=== PATIENT | female | born 1945 | race Caucasian/White ===

== ENCOUNTER 2017-06-11 15:00 | Inpatient (IN) | payer MEDICARE, OTHER ==
--- NOTE | 2017-05-22 08:05 | HP ---
HISTORY AND PHYSICAL: DATE OF SURGERY/ADMISSION: 06/11/17 DATE OF OFFICE VISIT: 05/17/17 ATTENDING SURGEON: Dr. Mel Rodriguez * (DICTATED BY LAUREN LEAL) PROCEDURE: Right total knee arthroplasty. CHIEF COMPLAINT: Right knee pain. HISTORY OF PRESENT ILLNESS: Ms. Ervin is a very pleasant 71-year-old female, who presents today for history and physical examination prior to undergoing a right total knee arthroplasty. In brief, the patient states that her pain has been worsening in time. She has failed conservative treatments such as intra- articular injections, physical therapy, brace wear, and pain medications. She has elected to undergo a right total knee arthroplasty with Dr. Mel Rodriguez on 06/11/17. PAST MEDICAL HISTORY: 1. Gastric ulcer with no history of bleeding for over 10 years. 2. Generalized osteoarthritis. 3. GERD. 4. Hypertension. 5. Thyroid cancer, status post resection. 6. Asthma. PAST SURGICAL HISTORY: 1. Sinus surgeries in 1995. 2. Melanoma excision from abdomen in 2000. 3. Thyroid cancer excision in 2007. 4. Cholecystectomy in 1991. FAMILY HISTORY: Positive for heart disease and cancer. SOCIAL HISTORY: The patient lives with her . She denies tobacco use or recreational drug use. Approximately 1 to 2 glasses of wine a day. Independent ambulator. MEDICATIONS: 1. Levothyroxine 112 mcg 1 tablet by mouth daily. 2. Amlodipine 5 mg 1 tablet by mouth daily. 3. Advair Diskus once daily. 4. Pepcid 20 mg 1 tablet by mouth twice daily. 5. Sertraline 25 mg 1 tablet by mouth daily. 6. Prevalite 4 g mix and drink 1 packet once a day. 7. EnteraGam 5 g 1 packet twice daily. 8. [place] 5/325 one to two tablets by mouth every 8 hours as needed for pain. 9. Benadryl. ALLERGIES: 1. LEVAQUIN, causes hives. 2. AMOXICILLIN, causes hives. REVIEW OF SYSTEMS: General: Negative for fevers, chills, or night sweats. No difficulty with anesthesia. HEENT: Negative for headaches, lightheadedness, or syncopal episodes. Integument: Negative for abrasions, lesions, open wounds , or sores. No difficulty with wound healing. Cardiothoracic: Negative for chest pain, palpitations, or edema. Positive for hypertension. Pulmonary: Negative for shortness of breath, chronic cough, or COPD. Positive for asthma. GI: Negative for nausea, vomiting, constipation, or diarrhea. Positive for GERD. Positive for gastric ulcers in the past. : Negative for nocturia, urinary frequency, or urgency. No history of UTIs or kidney problems. Musculoskeletal: Positive for bilateral knee pain. Positive for intermittent lower back pain. Neuro: Negative for paresthesias, numbness. No history of seizure, stroke, or epilepsy. Endocrine: Negative for diabetes. Positive for thyroid cancer, status post resection. Hematologic: Negative for easy bruising , anemia, or excessive bleeding. No history of DVTs or PEs. Infectious Disease : Negative for MRSA, hepatitis C, or HIV. PHYSICAL EXAMINATION GENERAL: Well appearing, in no acute distress. Alert and oriented x3. VITAL SIGNS: Height 63 inches, weight 160 pounds, pulse of 103, blood pressure 144/68, pain level 5, BMI 28.3. HEENT: Normocephalic, atraumatic. Pupils, EOMI. PULMONARY: Lungs are clear to auscultation bilaterally. No crackles, rhonchi, or wheezes. CARDIAC: Heart is regular rate and rhythm. No murmurs, gallops, or rubs. NEUROLOGIC: Alert and oriented x3. Cranial nerves are grossly intact. Sensation is intact to light touch bilateral lower extremities. MUSCULOSKELETAL: Approximately 10 degrees valgus deformity. No varus valgus instability. Range of motion is 5 to 120 degrees. Negative Homans sign bilaterally. SKIN: Intact. No open wounds or abrasions. GAIT: Antalgic gait, favoring bilateral knees. Valgus alignment of the right knee. DIAGNOSTIC STUDIES/LAB DATA: X-rays of the knee showed tricompartmental arthritis with some osteophyte formation and joint space narrowing with bone-on- bone unilateral compartment. ASSESSMENT: The patient is a very pleasant 71-year-old female, who has elected to undergo a right total knee replacement by Dr. Rodriguez on 06/11/17 and her pain medications were sent to the patient's pharmacy preoperatively. She will undergo PATs. She had no other questions or concerns, will call us if any do arise. LAUREN LEAL [id number]/[facility] #: [id number] [facility]
--- NOTE | 2017-07-09 20:15 | HP ---
HISTORY AND PHYSICAL: DATE OF ADMISSION/SURGERY: 07/18/17 DATE OF OFFICE VISIT: 07/08/17 SURGEON: Mel Rodriguez MD * (DICTATED BY LAUREN JAVED) PROCEDURE: Right total knee arthroplasty. CHIEF COMPLAINT: Right knee pain. HISTORY OF PRESENT ILLNESS: Ms. Ervin is a 71-year-old female with complaints of right knee pain secondary to severe osteoarthritis. She has failed conservative management and has elected to proceed with a right total knee arthroplasty, which is scheduled for 07/18/[address] Rodriguez. PAST MEDICAL HISTORY: Hypertension, thyroid cancer, gastric ulcers, GERD, asthma, melanoma, history of intestinal MRSA, and chronic sinusitis. PAST SURGICAL HISTORY: Sinus surgeries, melanoma removal, thyroidectomy, and cholecystectomy. CURRENT MEDICATIONS: 1. Levoxyl 137 mcg daily. 2. Amlodipine 10 mg daily. 3. Advair Diskus. 4. Pepcid 40 mg daily. 5. Sertraline 50 mg daily. ALLERGIES: To LEVAQUIN, AMOXICILLIN, and NORCO causing itching. FAMILY HISTORY: Heart disease and cancer. SOCIAL HISTORY: This 71-year-old female lives with her . She does not smoke or use drugs. She uses occasional alcohol. REVIEW OF SYSTEMS: A complete 14-point review of systems was reviewed with the patient. Positive for history of thyroid cancer, intestinal MRSA infection 2 years ago, GERD, and an asthma attack following general anesthesia. She denies history of DVT, PE, hepatitis C, or HIV. PHYSICAL EXAMINATION GENERAL: She is well developed, well nourished, in no acute distress. VITAL SIGNS: She stands 5 feet 3 inches tall, weighs 160 pounds. Her blood pressure is 124/94, her heart rate is 98. HEENT: Normocephalic, atraumatic. NECK: Supple. No palpable lymph nodes. PULMONARY: Lungs are clear to auscultation bilaterally. CARDIO: Regular rate and rhythm. Strong S1, S2. ABDOMEN: Soft, nontender, nondistended. NEUROLOGICAL: She is alert and oriented x3. Cranial nerves II through XII are intact. MUSCULOSKELETAL: Right lower extremity, the skin is intact. There are no open wounds or abrasions. 10 to 120 degrees of flexion with 10 degrees of valgus deformity. She is distally neurovascularly intact. ASSESSMENT AND PLAN: Ms. Ervin is a 71-year-old female with complaints of right knee pain secondary to advanced osteoarthritis. She has failed conservative management and has elected to proceed with a right total knee arthroplasty, which is scheduled for 07/18/[address] Rodriguez discussed the risks and benefits of the surgery at today's visit and all of her questions were answered. Coumadin, Percocet, and Colace were sent to her pharmacy for postoperative pain control and DVT prophylaxis. Postoperatively, she will be placed on vanco for 24 hours because of her history of methicillin- resistant Staphylococcus aureus infection and she will follow with Dr. Rodriguez 2 weeks after the surgery. LAUREN JAVED [id number]/[facility] #: [id number] MTDD
[2017-07-22] MEDS ORDERED: Buffered Lidocaine 0.9% SYRIN* 5 ML/SYR SYRINGE INTRADERM ONE (11:28)
[2017-07-23] MEDS ORDERED: Dexamethasone IV* 4 MG/ML 1 ML (4 MG) IV SLOW PU ONE (06:00)
[2017-07-23] MEDS ORDERED: Dexamethasone IV* 4 MG/ML 1 ML (4 MG) ONE (13:04)
[2017-07-23] MEDS ORDERED: Clindamycin 900 MG IVPREMIX(* 900 MG/50 ML SDV IV ONE (13:04)
[2017-07-23] MEDS ORDERED: Buffered Lidocaine 0.9% SYRIN* 5 ML/SYR SYRINGE ONE (13:04)
[2017-07-23] MEDS ORDERED: Levalbuterol 0.63MG/3ML NEB* UNIT OF USE INH ONE (13:09)
[2017-07-23] MEDS ORDERED: Levalbuterol 1.25MG/0.5ML NEB ONE (13:16)
[2017-07-23] MEDS ORDERED: Ondansetron INJ* 2 MG/ML VIAL ONE (13:44)
[2017-07-23] MEDS ORDERED: Bupivacaine 0.5% SDV PF* 30 ML VIAL ONE (13:44)
[2017-07-23] MEDS ORDERED: Morphine PF AMP (0.5MG/ML)* 5 MG/10 ML AMP ONE (13:44)
[2017-07-23] MEDS ORDERED: KETAMINE HCL* 50 MG/ML 10 ML VIAL ONE (13:44)
[2017-07-23] MEDS ORDERED: Propofol* 10 MG/ML 20 ML BTL IV PUSH ONE (13:44)
[2017-07-23] MEDS ORDERED: Midazolam* 1 MG/ML 10 ML VIAL (10 MG) ONE (13:44)
[2017-07-23] MEDS ORDERED: Lidocaine 2% PF * 5 ML VIAL ONE (14:49)
[2017-07-23] MEDS ORDERED: fentaNYL* 50 MCG/ML 2 ML VIAL (100 MCG VIAL) ONE (14:49)
[2017-07-23] MEDS ORDERED: Acetaminophen TAB* 325 MG PO PRN (14:56)
[2017-07-23] MEDS ORDERED: Magnesium Hydroxide LIQ* 30 ML UDC PO PRN (14:56)
[2017-07-23] MEDS ORDERED: Bisacodyl SUPP* 10 MG SUPP PR PRN (14:56)
[2017-07-23] MEDS ORDERED: Polyethylene Glycol 3350* 17 GM PACKET PO PRN (14:56)
[2017-07-23] MEDS ORDERED: Albuterol HFA INHALER* 8 gm MDI INH PRN (15:00)
[2017-07-23] MEDS ORDERED: Ondansetron INJ* 2 MG/ML VIAL IV PRN (15:12)
[2017-07-23] MEDS ORDERED: Nalbuphine* 20 MG/ML 1 ML VIAL IV PRN ×2 (15:12)
[2017-07-23] MEDS ORDERED: Naloxone* 0.4 MG/ML 1 ML VIAL IV PRN (15:12)
[2017-07-23] MEDS ORDERED: oxyCODONE/Acetamin 5/325 MG* TAB PO PRN ×2 (15:12)
[2017-07-23] MEDS ORDERED: DiMENhydriNATE IV* 50 MG/ML VIAL IV PUSH PRN (15:12)
[2017-07-23] MEDS ORDERED: Ropivacaine* 300 MG in NS 0.9% 250 ML* 240 ML EPIDURAL SCH (16:00)
[2017-07-23] MEDS ORDERED: Scopolamine 1.5 mg* PATCH TRANSDERM SCH (16:00)
--- NOTE | 2017-07-23 17:43 | RAD ---
Indication: Right knee pain. 2 views of the right knee demonstrates right knee replacement in satisfactory position. Drainage catheter is in place. IMPRESSION: Right knee replacement in satisfactory position.
[2017-07-23] MEDS ORDERED: Warfarin TAB(*) 6 MG PO ONE (18:00)
[2017-07-23] MEDS: Sertraline* 50 MG TAB PO SCH (18:32)
[2017-07-23] MEDS: Levothyroxine TAB* 137 MCG TAB PO SCH (20:45)
[2017-07-23] MEDS: Vancomycin(*) 1,000 MG in NS 0.9% 250 ML* 250 ML IVPB SCH (20:49)
[2017-07-23] MEDS: Docusate CAP* 100 MG PO SCH (20:49)
[2017-07-24] MEDS ORDERED: Al Hydrox/Mg Hydrox/Simet LIQ* 30 ML UDC PO PRN (00:15)
--- NOTE | 2017-07-24 04:49 | OP ---
DATE OF OPERATION: 07/23/17 - ROOM #333 DATE OF : 47 ATTENDING SURGEON: Mel Rodriguez MD COREMAKING SUPERVISOR: LAUREN Parsons. Ms. Lazo did help throughout the procedure with preparation of the leg, wound retraction, manipulation of the knee, and wound closure. ANESTHESIOLOGIST: Dr. Cochran. ANESTHESIA TYPE: Spinal. PRE-OP DIAGNOSIS: Severe end-stage degenerative osteoarthritis of the right knee joint with valgus deformity. POST-OP DIAGNOSIS: Severe end-stage degenerative osteoarthritis of the right knee joint with valgus deformity. OPERATIVE PROCEDURE: Right total knee arthroplasty. TOURNIQUET TIME: 42 minutes. COMPLICATIONS: None. SPECIMEN: Right knee bone and cartilage sent to Pathology. ESTIMATED BLOOD LOSS: 250 cc. HARDWARE USED: This is [employer]rol[employer] Nephew cemented total knee arthroplasty hardware. Two packages of Simplex bone cement. For the femur, a size 4 narrow right Oxinium femoral component legion. For the tibia, a size 3 Erlinda II right tibial baseplate. For the insert, an 11 mm posterior stabilized articular insert size 3-4 and for the patella, 32 mm 3-peg all poly patella. BRIEF HISTORY/INDICATIONS: Ms. Ervin is a 71-year-old female with years of increasingly severe right knee pain. She failed conservative treatment with anti-inflammatories, pain medication, intraarticular injections, and physical therapy. Radiograph showed [id number] arthritis. She elected to undergo right total knee arthroplasty due to continued pain and decreased quality of life. Informed consent was obtained from the patient. She understood the risks of the procedure included, but were not limited to bleeding, infection, damage to nearby structures, continued pain, need for further surgery, intraoperative fracture, nerve palsy, hardware failure or loosening, knee stiffness, loss of motion, stroke, heart attack, blood clot, and . She wished to proceed. INTRAOPERATIVE FINDINGS: Intraoperatively, the patient was noted to have 12- degree valgus deformity preoperatively. This was corrected to anatomic valgus of 5 degrees at the end of the case. She had tricompartmental full thickness loss of cartilage as well as lateral femoral condylar hypoplasia. DESCRIPTION OF PROCEDURE: Ms. Ervin was identified in the preanesthesia unit. Her right lower extremity was marked as the correct operative side. Informed consent was signed and placed in the chart. The patient was taken to the operating room and placed under spinal anesthesia. A Ma catheter was placed. Tourniquet was placed on the right thigh. Right lower extremity was prepped and draped in the usual sterile fashion. Preop time-out was made to correctly identify the patient, side, and site. Appropriate perioperative antibiotics were given within 1 hour of incision. Tourniquet was inflated and total tourniquet time for this procedure was 42 minutes. A 12-cm midline incision was made with a 10-blade and carried down to the extensor mechanism. A new 10-blade was used to make a standard medial parapatellar arthrotomy. The patella was subluxed laterally. Electrocautery was used to subperiosteally elevate soft tissue off the superomedial tibia to the mid sagittal plane. The knee was flexed up. Drill was used to enter the distal femur. Intramedullary distal femoral cutting guide was pinned on the distal femur. Oscillating saw was used to make the distal femoral cut. Lateral femoral condylar hypoplasia was noted. This was accounted for. Next, the external rotation guide was pinned on the distal femur and the distal femur was sized to a size 4. A size 4 multi-cutting jig was pinned on the distal femur and the oscillating saw was used to make the appropriate 4 chamfer cuts. Next, the PCL was completely released. The tibia was subluxed anteriorly. Extramedullary tibial cutting guide was pinned on the proximal tibia. Oscillating saw was used to make the appropriate proximal tibial cut. This cut was made perpendicular to the mechanical axis of the tibia. The bone was carefully removed. The knee was brought out into full extension. A spacer block had good fit with full extension. Medial and lateral ligaments were well balanced. The flexion and extension gaps were well balanced. The knee was flexed up. Lamina skull splitter was placed both medially and laterally. Any remaining meniscus was carefully removed using electrocautery. A curved osteotome was used to remove any posterior osteophytes. Tibial tray and drop bruce were placed to confirm the tibial cut. Tibial cut was confirmed to be satisfactory. Next, the size 4 narrow right femoral trial was impacted on to the distal femur. This trial had excellent fit. The box for the posterior stabilized implant was prepared using a reamer and box cut osteotome. A size 3 tibial tray trial with an 11 mm insert trial was placed and the knee was taken through a range of motion. The knee had full extension to 130 degrees of flexion with good patellofemoral tracking. The patella was everted. A 9 mm subpatellar bone and cartilage was carefully removed. The patella was sized to a size 32. Three peg holes were drilled through the size 32 guide. A 32 trial patella was placed and the knee was taken through a range of motion. The patellofemoral tracking was satisfactory. All trials were carefully removed. The tibia was subluxed anteriorly and sized to a size 3. Proximal tibia was prepared using a size 3 keel punch. All bony cut surfaces were copiously irrigated with sterile saline and dried. The final implants were cemented into place starting with the tibia, followed by the femur and last the patella. An 11-mm insert trial was placed and the knee was brought out into full extension. The tourniquet was turned down at 42 minutes. Cement was allowed to fully cure. The knee was copiously irrigated with sterile saline. Electrocautery was used to obtain meticulous hemostasis. Once the cement had fully cured, the insert trial was carefully removed. Any excess cement was removed from around the capsule and hardware. An 11-mm posterior stabilized articular insert size 3-4 was chosen as the final insert. This was locked into position on the tibial tray. Stability of the insert was checked and rechecked and noted to be stable. The knee was copiously irrigated with sterile saline. The extensor mechanism was closed using interrupted #1 Vicryls over a medium Hemovac drain. The rest of the incision was closed in a layered fashion using 0 and 2-0 Vicryls. Skin was closed using running 3-0 nylon suture. Sterile Xeroform, 4x4s, and Webril were used to cover the incision. Lazarus wrap and cold pack were placed over this. The patient's anesthesia was reversed without difficulty. She was taken to the PACU in stable condition. Intended weightbearing will be weightbearing as tolerated. Intended DVT prophylaxis will be Coumadin with a Lovenox bridge. [id number]/[facility] #: [id number] [facility]
[2017-07-24 05:30] LABS: Hematocrit 31 % (35-47); Hemoglobin 10.3 g/dl (12.0-16.0)
[2017-07-24 05:41] LABS: BUN/Creatinine Ratio 20.2 (8-20); EGFR African American 71.3 (>60); EGFR Non-African American 55.5 (>60); Potassium 3.3 mmol/L (3.5-5.0)
[2017-07-24] MEDS ORDERED: oxyCODONE/Acetamin 5/325 MG* TAB PO PRN (06:00)
[2017-07-24] MEDS ORDERED: diPHENhydraMINE IV* 50 MG/ML 1 ml VIAL (BENADRYL) IV PRN (06:00)
[2017-07-24] MEDS ORDERED: Morphine INJ* 2 MG/ML 1 ML SYRINGE (TWO MG - NEW SYRINGE VERSION) IV PRN ×2 (06:00→14:13)
[2017-07-24] MEDS ORDERED: Ondansetron INJ* 2 MG/ML VIAL IV PRN (06:00)
[2017-07-24] MEDS ORDERED: Ondansetron TAB* 4 MG PO PRN (06:00)
[2017-07-24] MEDS: oxyCODONE/Acetamin 5/325 MG* TAB PO PRN ×4 (06:10→19:46)
[2017-07-24] MEDS ORDERED: Famotidine TAB* 20 MG PO PRN (06:55)
[2017-07-24] MEDS: oxyCODONE TAB* 5 MG TAB PO PRN ×3 (08:02→17:05)
--- NOTE | 2017-07-24 08:08 | PN ---
Progress Note - Progress Note Date of Service: 07/24/17 SOAP: Subjective: []Patient seen OOB in chair. She denied pain this morning which became more prevalent throughout the afternoon. She requests pain medication prior to physical therapy. Denies chest pain, shortness of breath, dizziness and nausea. Objective: [] Vital Signs Temp 98.5 F 07/24/17 07:46 Pulse 97 07/24/17 07:46 Resp 18 07/24/17 08:02 BP 147/77 07/24/17 07:46 Pulse Ox 99 07/24/17 07:46 Intake & Output 07/23/17 07/24/17 07/24/17 18:59 06:59 18:59 Intake Total 1400 2090 Output Total 1200 Balance 1400 890 Weight 166 lb Intake: IV Fluids 1400 980 LR 1400 980 IVPB 270 ABX - VANCOMYCIN 270 Oral 840 Output: Ma 1200 Laboratory Last Values Hgb 10.3 g/dl (12.0-16.0) L 07/24/17 04:46 Hct 31 % (35-47) L 07/24/17 04:46 INR (Anticoag Therapy) 0.98 (0.77-1.02) 07/24/17 04:45 Sodium 133 mmol/L (133-145) 07/24/17 04:46 Potassium 3.3 mmol/L (3.5-5.0) L 07/24/17 04:46 Chloride 98 mmol/L (101-111) L 07/24/17 04:46 Carbon Dioxide 26 mmol/L (22-32) 07/24/17 04:46 Anion Gap 9 mmol/L (2-11) 07/24/17 04:46 BUN 20 mg/dL (6-24) 07/24/17 04:46 Creatinine 0.99 mg/dL (0.51-0.95) H 07/24/17 04:46 Est GFR ( Amer) 71.3 (>60) 07/24/17 04:46 Est GFR (Non-Af Amer) 55.5 (>60) 07/24/17 04:46 BUN/Creatinine Ratio 20.2 (8-20) H 07/24/17 04:46 Glucose 138 mg/dL (70-100) H 07/24/17 04:46 Calcium 8.0 mg/dL (8.6-10.3) L 07/24/17 04:46 Blood Type A Positive 07/23/17 13:24 Antibody Screen Negative 07/23/17 13:24 General: Well appearing, no acute distress RLE: Dressing CDI without surrounding erythema. Drain pulled by Dr. Rodriguez this morning without complication Bl/LE: Calves supple and nontender without erythema, edema or palpable cords. Negative jo's sign. 2+ DP/PT pulses. Sensation intact distally. DF/PF intact. Assessment: []POD 1 s/p right total knee arthroplasty Plan: []WBAT PT/OT lovenox, coumadin 8 mg tonight Morphine required prior to PT today Plan for home tomorrow
[2017-07-24] MEDS: Potassium Chlor TAB* 20 MEQ TAB.ER PO SCH ×2 (08:39→08:46)
[2017-07-24] MEDS: amLODIPine TAB* 5 MG PO SCH (08:39)
[2017-07-24] MEDS: Docusate CAP* 100 MG PO SCH ×2 (08:39→19:46)
[2017-07-24] MEDS: Famotidine TAB* 20 MG PO SCH (08:39)
[2017-07-24] MEDS: Potassium Chloride LIQUID* 20 MEQ PACKET PO SCH ×2 (08:54→19:48)
[2017-07-24] MEDS: Vancomycin(*) 1,000 MG in NS 0.9% 250 ML* 250 ML IVPB SCH (08:54)
[2017-07-24] MEDS ORDERED: Atorvastatin* 10 MG TAB PO SCH (09:00)
[2017-07-24] MEDS ORDERED: Mometasone/Formoter 200/5 MDI INH SCH (09:00)
[2017-07-24] MEDS ORDERED: CMC:Rosuvastatin (NF) 5 MG TAB PO SCH (09:22)
[2017-07-24] MEDS: CMC:Rosuvastatin (NF) 5 MG TAB PO SCH (09:38)
[2017-07-24] MEDS: Enoxaparin(*) 30 MG/0.3 ML SYR SUBCUT SCH (12:15)
[2017-07-24] MEDS ORDERED: Morphine INJ* 4 MG/ML 1 ML CARPUJECT IV PRN (14:09)
[2017-07-24] MEDS ORDERED: Morphine INJ* 4 MG/ML 1 ML CARPUJECT ONE (14:15)
[2017-07-24] MEDS ORDERED: HYDROmorphone INJ* 1 MG/ML CARPUJECT SYRINGE ONE (15:58)
[2017-07-24] MEDS ORDERED: HYDROmorphone INJ* 1 MG/ML CARPUJECT SYRINGE IV SLOW PU ONE (16:02)
[2017-07-24] MEDS ORDERED: HYDROmorphone INJ* 2 MG/ML CARPUJECT SYRINGE IV SLOW PU ONE (16:02)
[2017-07-24] MEDS ORDERED: Warfarin TAB(*) 4 MG PO ONE (17:00)
[2017-07-24] MEDS ORDERED: Warfarin TAB(*) 6 MG PO SCH (17:00)
[2017-07-24] MEDS: Sertraline* 50 MG TAB PO SCH (17:06)
[2017-07-24] MEDS: Levothyroxine TAB* 137 MCG TAB PO SCH (20:03)
[2017-07-24] MEDS: HYDROmorphone INJ* 2 MG/ML CARPUJECT SYRINGE IV SLOW PU PRN (20:54)
[2017-07-25] MEDS: oxyCODONE/Acetamin 5/325 MG* TAB PO PRN ×5 (00:15→20:16)
[2017-07-25] MEDS: HYDROmorphone INJ* 2 MG/ML CARPUJECT SYRINGE IV SLOW PU PRN (01:09)
[2017-07-25] MEDS: oxyCODONE TAB* 5 MG TAB PO PRN ×3 (03:09→16:13)
[2017-07-25 07:15] LABS: Hematocrit 29 % (35-47); Hemoglobin 9.7 g/dl (12.0-16.0); Mean Platelet Volume 8 um3 (7.4-10.4)
[2017-07-25 07:32] LABS: BUN/Creatinine Ratio 25.4 (8-20); Calcium 7.9 mg/dL (8.6-10.3); EGFR African American 111.9 (>60); Potassium 3.3 mmol/L (3.5-5.0)
[2017-07-25] MEDS: amLODIPine TAB* 5 MG PO SCH (08:50)
[2017-07-25] MEDS: Docusate CAP* 100 MG PO SCH ×2 (08:50→20:16)
[2017-07-25] MEDS: Potassium Chloride LIQUID* 20 MEQ PACKET PO SCH ×2 (08:50→20:19)
[2017-07-25] MEDS: Famotidine TAB* 20 MG PO SCH (08:50)
[2017-07-25] MEDS: FLUTICASONE SALMETEROL INH SCH (08:54)
[2017-07-25] MEDS: CMC:Rosuvastatin (NF) 5 MG TAB PO SCH ×2 (08:54→09:23)
--- NOTE | 2017-07-25 10:25 | PN ---
Progress Note - Progress Note Date of Service: 07/25/17 SOAP: Subjective: []Patient seen OOB in chair. Pain was poorly controlled overnight but she feels much better this morning. No chest pain, shortness of breath, nausea or leg numbness. Objective: [] Vital Signs Temp 98.9 F 07/25/17 07:43 Pulse 102 07/25/17 08:35 Resp 20 07/25/17 08:51 BP 124/70 07/25/17 08:35 Pulse Ox 93 07/25/17 07:43 Intake & Output 07/24/17 07/25/17 07/25/17 18:59 06:59 18:59 Intake Total 720 200 180 Output Total 500 850 250 Balance 220 -650 -70 Intake: IV Fluids 540 ABX - VANCOMYCIN 255 LR 285 Oral 180 200 180 Output: Urine 500 850 250 Other: Estimated Void Small # Voids 1 Laboratory Last Values Hgb 9.7 g/dl (12.0-16.0) L 07/25/17 06:47 Hct 29 % (35-47) L 07/25/17 06:47 Plt Count 268 10^3/ul (150-450) 07/25/17 06:47 MPV 8 um3 (7.4-10.4) 07/25/17 06:47 INR (Anticoag Therapy) 1.60 (0.77-1.02) H 07/25/17 06:47 Sodium 134 mmol/L (133-145) 07/25/17 06:47 Potassium 3.3 mmol/L (3.5-5.0) L 07/25/17 06:47 Chloride 99 mmol/L (101-111) L 07/25/17 06:47 Carbon Dioxide 28 mmol/L (22-32) 07/25/17 06:47 Anion Gap 7 mmol/L (2-11) 07/25/17 06:47 BUN 17 mg/dL (6-24) 07/25/17 06:47 Creatinine 0.67 mg/dL (0.51-0.95) 07/25/17 06:47 Est GFR ( Amer) 111.9 (>60) 07/25/17 06:47 Est GFR (Non-Af Amer) 87.0 (>60) 07/25/17 06:47 BUN/Creatinine Ratio 25.4 (8-20) H 07/25/17 06:47 Glucose 110 mg/dL (70-100) H 07/25/17 06:47 Calcium 7.9 mg/dL (8.6-10.3) L 07/25/17 06:47 Blood Type A Positive 07/23/17 13:24 Antibody Screen Negative 07/23/17 13:24 General: Well appearing, no acute distress RLE: Dressing changed by Dr. Rodriguez this morning without complication. Incision is CDI without surrounding erythema. Bl/LE: Calves supple and nontender without erythema, edema or palpable cords. Negative jo's sign. 2+ DP/PT pulses. Sensation intact distally. DF/PF intact. Assessment: []POD 2 s/p right total knee arthroplasty Plan: []WBAT PT/OT lovenox, coumadin 4 mg tonight Plan for home07/26
[2017-07-25] MEDS: Enoxaparin(*) 30 MG/0.3 ML SYR SUBCUT SCH (11:50)
[2017-07-25] MEDS ORDERED: Warfarin TAB(*) 4 MG PO ONE (17:00)
[2017-07-25] MEDS: Sertraline* 50 MG TAB PO SCH (18:02)
[2017-07-25] MEDS: Levothyroxine TAB* 137 MCG TAB PO SCH (20:18)
[2017-07-26] MEDS: oxyCODONE/Acetamin 5/325 MG* TAB PO PRN ×2 (00:58→07:48)
[2017-07-26 06:02] LABS: Hematocrit 28 % (35-47); Hemoglobin 9.4 g/dl (12.0-16.0)
[2017-07-26 06:16] LABS: BUN/Creatinine Ratio 16.9 (8-20); Calcium 7.5 mg/dL (8.6-10.3); EGFR African American 129.6 (>60); EGFR Non-African American 100.8 (>60); Potassium 3.2 mmol/L (3.5-5.0)
--- NOTE | 2017-07-26 07:28 | PN ---
Progress Note - Progress Note Date of Service: 07/26/17 SOAP: Subjective: Pt. is alert, pain controlled, wants to go home. Objective: RLE - dressing c/d/i. distally nvi. Vital Signs: Temp Pulse Resp BP Pulse Ox 97.9 F 87 16 130/68 95 07/26/17 03:21 07/26/17 03:21 07/26/17 03:21 07/26/17 03:21 07/26/17 03:21 Laboratory Results - last 24 hr 07/25/17 07/25/17 07/25/17 06:47 06:47 06:47 Hgb 9.7 L Hct 29 L Plt Count 268 MPV 8 INR (Anticoag Therapy) 1.60 H Sodium 134 Potassium 3.3 L Chloride 99 L Carbon Dioxide 28 Anion Gap 7 BUN 17 Creatinine 0.67 Est GFR ( Amer) 111.9 Est GFR (Non-Af Amer) 87.0 BUN/Creatinine Ratio 25.4 H Glucose 110 H Calcium 7.9 L 07/26/17 07/26/17 07/26/17 05:20 05:20 05:20 Hgb 9.4 L Hct 28 L Plt Count MPV INR (Anticoag Therapy) 2.58 H Sodium 136 Potassium 3.2 L Chloride 101 Carbon Dioxide 28 Anion Gap 7 BUN 10 Creatinine 0.59 Est GFR ( Amer) 129.6 Est GFR (Non-Af Amer) 100.8 BUN/Creatinine Ratio 16.9 Glucose 102 H Calcium 7.5 L Assessment: 71 yo F pod 3 s/p RTKA Plan: K+ 3.2 - patient reports she has supplements at home and runs low occasionally. We will recheck in 1 week. Hold coumadin tonight, lovenox d/c'ed. wbat pt/ot d/c to home today
[2017-07-26] MEDS ORDERED: Potassium Chloride LIQUID* 20 MEQ PACKET ONE (07:45)
[2017-07-26] MEDS: Potassium Chloride LIQUID* 20 MEQ PACKET PO SCH ×2 (07:48→08:01)
[2017-07-26] MEDS: CMC:Rosuvastatin (NF) 5 MG TAB PO SCH (07:48)
[2017-07-26] MEDS: Docusate CAP* 100 MG PO SCH (07:49)
[2017-07-26] MEDS: FLUTICASONE SALMETEROL INH SCH (07:49)
[2017-07-26] MEDS: amLODIPine TAB* 5 MG PO SCH (07:49)
[2017-07-26] MEDS: Famotidine TAB* 20 MG PO SCH (07:49)
[2017-07-26] MEDS ORDERED: Potassium Chlor TAB* 20 MEQ TAB.ER PO ONE (08:00)
[2017-07-26 10:14] VITALS: BP 127/60
--- NOTE | 2017-07-26 10:24 | PN ---
Progress Note - Progress Note Date of Service: 07/26/17 SOAP: Subjective: 71 y/o female s/p R TKA by Dr Rodriguez. Pateint doing well, dressed herself this AM, VSS afebrile. Eager for D/C. multipls questions all answered. Objective: General- Well appearing, NAD, AO MSK- dresing removed, incision c/d/i, no drainage noted, minimal erythema, no ecchymosis, mild swelling, new dresssing placed, neg homans b/l, PT 2+ b/l, + DF /PF b/l, SITLT b/l. Active Medications Generic Name Dose Route Start Last Admin Trade Name Freq PRN Reason Stop Dose Admin Acetaminophen 650 mg 07/23/17 14:56 Tylenol Tab* PO Q4H PRN PAIN OR TEMPERATURE Al Hydrox/Mg Hydrox/Simethicone 30 ml 07/24/17 00:15 07/24/17 00:41 Maalox Plus* PO 30 ml Q4H PRN Administration HEARTBURN Albuterol 1 puff 07/23/17 15:00 07/24/17 21:44 Ventolin Hfa Inhaler* INH 1 puff BID PRN Administration SHORTNESS OF BREATH Amlodipine Besylate 10 mg 07/24/17 09:00 07/26/17 07:49 Norvasc Tab* PO 10 mg QAM CAROL Administration Bisacodyl 10 mg 07/23/17 14:56 Dulcolax Supp* NH DAILY PRN constipation Diphenhydramine HCl 12.5 mg 07/24/17 06:00 Benadryl Iv* IV Q6H PRN PRURITIS Docusate Sodium 100 mg 07/23/17 21:00 07/26/17 07:49 Colace Cap* PO 100 mg BID CAROL Administration Famotidine 40 mg 07/24/17 09:00 07/26/17 07:49 Pepcid Tab* PO 40 mg QAM CAROL Administration Famotidine 20 mg 07/24/17 06:55 Pepcid Tab* PO BEDTIME PRN HEARTBURN Hydromorphone HCl 1 mg 07/24/17 17:13 07/25/17 01:09 Dilaudid Inj* IV SLOW PU 1 mg Q4H PRN Administration PAIN - SEVERE Lactated Ringer's 1,000 mls @ 100 mls/hr 07/23/17 15:00 07/24/17 05:29 Lactated Ringers 1000 Ml Bag* IV 100 mls/hr PER RATE CAROL Administration Lactulose 30 ml 07/23/17 14:56 Lactulose* PO Q6H PRN constipation Levothyroxine Sodium 137 mcg 07/23/17 20:00 07/25/17 20:18 Synthroid Tab* PO 137 mcg 2000 CAROL Administration Magnesium Hydroxide 30 ml 07/23/17 14:56 Milk Of Magnesia Liq* PO Q6H PRN constipation Ondansetron HCl 4 mg 07/24/17 06:00 Zofran Inj* IV Q6H PRN nausea Ondansetron HCl 4 mg 07/24/17 06:00 Zofran Tab* PO Q6H PRN NAUSEA Oxycodone HCl 10 mg 07/24/17 06:00 07/25/17 16:13 Roxycodone Tab* PO 10 mg Q4H PRN Administration SEVERE PAIN Oxycodone/Acetaminophen 1 tab 07/24/17 06:00 Percocet 5/325 Tab* PO Q4H PRN PAIN Oxycodone/Acetaminophen 2 tab 07/24/17 06:00 07/26/17 07:48 Percocet 5/325 Tab* PO 2 tab Q4H PRN Administration PAIN Pharmacy Profile Note 1 note 07/26/17 15:16 Scopolamine Patch Remove* PATCH OFF 07/26/17 15:17 .AFTER 72 HOURS ONE Pharmacy Profile Note 1 note 07/24/17 17:00 07/25/17 16:17 Coumadin Daily Reminder* FOLLOW UP 1 note 1700 CAROL Administration Polyethylene Glycol/Electrolytes 17 gm 07/23/17 14:56 Miralax* PO DAILY PRN Constipation Potassium Chloride 20 meq 07/24/17 09:00 07/26/17 08:01 Klor-Con Liquid* PO Not Given BID CAROL Rosuvastatin Calcium 5 mg 07/24/17 10:00 07/26/17 07:48 Crestor (Nf) PO 5 mg DAILY CAROL Administration Protocol Fluticasone/Salmeterol 1 puff 07/24/17 09:24 07/26/17 07:49 Advair Diskus 500-50* INH 1 puff QAM CAROL Administration Scopolamine 1 patch 07/23/17 16:00 07/24/17 03:36 Transderm-Scop 1.5 Mg Patch* TRANSDERM Not Given Q72H CAROL Sertraline HCl 50 mg 07/23/17 18:00 07/25/17 18:02 Zoloft* PO 50 mg QPM CAROL Administration Vital Signs Temp 98.1 F 07/26/17 07:49 Pulse 89 07/26/17 07:49 Resp 18 07/26/17 07:49 BP 127/60 07/26/17 07:49 Pulse Ox 98 07/26/17 07:49 Intake & Output 07/25/17 07/26/17 07/26/17 18:59 06:59 18:59 Intake Total 645 1200 230 Output Total 1550 1100 180 Balance -905 100 50 Intake: IV Fluids 0 ABX - VANCOMYCIN 0 LR 0 IVPB 0 ABX - VANCOMYCIN 0 LR 0 Oral 645 1200 230 Output: Urine 1550 1100 180 Other: # Voids 2 Assessment: 71 y/o female s/p R TKA by Dr Rodriguez. Plan: - Coumadin- theraptic INR - Continue PT - continue home meds - follow up with Dr. Rodriguez within 2 weeks - Continue pain meds
[2017-07-26] MEDS: oxyCODONE TAB* 5 MG TAB PO PRN (10:50)
[2017-07-26] MEDS ORDERED: Scopolamine PATCH Remove* 1 NOTE MISC PATCH OFF ONE (15:16)
--- NOTE | 2017-07-27 00:53 | DS ---
DISCHARGE SUMMARY: DATE OF ADMISSION: 07/23/17 DATE OF DISCHARGE: 07/26/17 ATTENDING PHYSICIAN: Dr. Mel Rodriguez * (DICTATED BY LAUREN LEAL) CHIEF COMPLAINT: 1. Right knee pain. 2. Hypertension. 3. History of thyroid cancer. 4. Gastric ulcers. 5. GERD. 6. Asthma. 7. History of melanoma. 8. History of intestinal MRSA. 9. Chronic sinusitis. DISCHARGE DIAGNOSES: 1. Status post right total knee arthroplasty. 2. Hypertension. 3. History of thyroid cancer. 4. History of gastric ulcers. 5. Gastroesophageal reflux disease. 6. Asthma. 7. History of melanoma. 8. History of intestinal MRSA. 9. Chronic sinusitis. PROCEDURE: Right total knee arthroplasty. CONSULTATIONS: 1. Physical Therapy. 2. Occupational Therapy. HISTORY: Mrs. Ervin is a very pleasant 71-year-old female with severe end- stage degenerative osteoarthritis of the right knee who failed conservative treatment and elected to undergo right total knee arthroplasty on 07/23/[address] Mel Rodriguez. HOSPITAL COURSE: Mrs. Ervin was admitted to [facility] on 07/23/17 where she underwent a right total knee arthroplasty. Postoperatively, she recovered on the surgical short stay unit. On postoperative day #2, her Ma was removed and she was voiding on her own without difficulty. Her pain was controlled with p.o. Percocet and she was discharged on her home medications. Her labs and vital signs remained stable. She is able to bear weight on the right lower extremity without difficulty. She advanced with physical therapy and occupational therapy. Her DVT prophylaxis was managed with Coumadin and Lovenox until she reached the therapeutic INR. By postoperative day #3, she was orthopedically and medically stable for discharge to go home with home services. PHYSICAL EXAM: General: Well appearing, in no acute distress, alert and oriented, resting in bed comfortably. Vital Signs: Temperature 98.1, pulse 89 , respirations 18, blood pressure 127/60, pulse oxygenation 98% on room air. Right lower extremity, dressing was removed. The incision is clean and dry intact, no drainage noted. Minimal erythema. No ecchymosis, mild swelling throughout the knee. New dressing was placed. Negative Homans sign bilaterally. Posterior tibial pulses 2+ bilaterally. Positive dorsiflexion and plantar flexion equal bilaterally. Sensation is intact light touch throughout bilateral lower extremities. LABORATORY DATA: H and H on date of discharge is 9.4 and 28 with an INR of 2.58. RADIOGRAPHS: Postoperative films obtained of the right knee on 07/23/17 demonstrates right knee replacement in satisfactory position. DISCHARGE MEDICATIONS: 1. Tylenol 650 mg p.o. q.4 hours p.r.n., not to exceed 4000 mg a day in combination with Percocet. 2. Albuterol or Ventolin inhaler 1 puff b.i.d. p.r.n. 3. Norvasc 10 mg p.o. q.a.m. 4. Pepcid 40 mg p.o. q.a.m. 5. Advair Diskus 500/50 one puff inhalation q.a.m. 6. Synthroid 137 mcg p.o. q.p.m. 7. Oxycodone/acetaminophen 5/325 one to two tablets every 4 to 6 hours as needed for pain. 8. Rosuvastatin 5 mg p.o. q.p.m. 9. Zoloft 50 mg p.o. q.p.m. 10. Warfarin 2 mg p.o. at 5 p.m. daily per physician's instructions. 11. Nasacort spray 1 puff both nares q.a.m. CONDITION ON DISCHARGE: Stable. DISCHARGE INSTRUCTIONS: Ms. Ervin is a very pleasant 71-year-old female, postoperative day #3 status post right total knee arthroplasty, which is uncomplicated. She is orthopedically and medically stable for discharge to go home with home services. Her labs and vital signs are stable. She will restart her home medications. She will hold her Coumadin for tonight and will take 2 mg on both 07/27/17 and 07/28/17 with an INR check on 07/29/17. She will take Percocet as needed for pain control and Colace up to 3 times a day to for constipation. She will follow up with Dr. Rodriguez in approximately 10 to 14 weeks for incision check and suture removal. She was instructed to go immediately to the ER should she develop chest pain or shortness of breath. If she develops fever, increasing pain, or redness, she is to call the office immediately. LAUREN LEAL [id number]/[facility] #: [id number] [facility]ENTERRudy
== END 2017-07-26 11:20 | disposition home health service (06) | DRG 470 ==
LOC: AA 07-23 12:51 → SSU 07-23 17:53
PROVIDERS: ADMIT Orthopaedic Surgery Adult Reconstructive Orthopaedic Surgery; ATTEND Orthopaedic Surgery Adult Reconstructive Orthopaedic Surgery
PROC: 0SRC0J9 Replacement of Right Knee Joint with Synthetic Substitute, Cemented, Open Approach (ICD-10-PCS; principal; 2017-07-23 15:00)
DX: M17.11 Unilateral primary osteoarthritis, right knee (principal); I10 Essential (primary) hypertension; K21.9 Gastro-esophageal reflux disease without esophagitis; J45.909 Unspecified asthma, uncomplicated; M21.061 Valgus deformity, not elsewhere classified, right knee; J32.9 Chronic sinusitis, unspecified; Z79.01 Long term (current) use of anticoagulants; Z85.820 Personal history of malignant melanoma of skin; Z86.14 Personal history of Methicillin resistant Staphylococcus aureus infection; Z85.850 Personal history of malignant neoplasm of thyroid; Z88.1 Allergy status to other antibiotic agents; Z88.0 Allergy status to penicillin; Z88.8 Allergy status to other drugs, medicaments and biological substances; Z82.49 Family history of ischemic heart disease and other diseases of the circulatory system; Z80.9 Family history of malignant neoplasm, unspecified; Z90.49 Acquired absence of other specified parts of digestive tract; D64.9 Anemia, unspecified; E87.6 Hypokalemia
CPT/HCPCS: 36415; 62327; 80048; 85014; 85018; 85049; 85610; 86850; 86900; 86901; 87641; 94760; A9270-GY; C1776; J1100; J1170; J1650; J2250; J2270; J2405; J2704; J2795; J3010; J3370

== ENCOUNTER 2020-10-12 13:28 | Inpatient (IN) ==
[2020-10-12] MEDS ORDERED: Magnesium Sulfate 2 gm BAG 2 GM/50 ML BAG IVPB ONE (13:37)
[2020-10-12 13:55] LABS: Hematocrit 40 % (35-47); Hemoglobin 11.7 g/dL (12.0-16.0); Mean Corpuscular HGB Conc 29 g/dL (31-36); Mean Corpuscular Hemoglobin 25 pg (27-31); Mean Corpuscular Volume 84 fL (80-97); Mean Platelet Volume 8.1 fL (7.4-10.4); Platelet Count 559 10^3/uL (150-450); Red Blood Count 4.72 10^6 /uL (3.70-4.87); Red Cell Distribution Width 21 % (10-15)
[2020-10-12 14:13] LABS: ALT 23 U/L (7-52); AST 35 U/L (13-39); Albumin 4.1 g/dL (3.2-5.2); Albumin/Globulin Ratio 1.2 (1-3); Alkaline Phosphatase 102 U/L (34-104); BUN/Creatinine Ratio 25.5 (8-20); Blood Urea Nitrogen 28 mg/dL (6-24); Calcium 8.7 mg/dL (8.6-10.3); Chloride 105 mmol/L (101-111); EGFR African American 58.7 (>60); EGFR Non-African American 48.6 (>60); Globulin 3.3 g/dL (2-4); Glucose 81 mg/dL (70-100); Potassium 3.8 mmol/L (3.5-5.0); Sodium 141 mmol/L (135-145); Total Protein 7.4 g/dL (6.4-8.9)
[2020-10-12] MEDS ORDERED: cefTRIAXone 1 gm/50 mL NS BAG 1 GM/50 ML BAG IV ONE (14:13)
[2020-10-12] MEDS ORDERED: Azithromycin 500 mg/250 ml NS 500 MG/250 ML BAG IVPB ONE (14:13)
[2020-10-12 14:15] LABS: Troponin I 0.01 ng/mL (<0.03)
[2020-10-12] MEDS ORDERED: Iodixanol (CONTRAST) 320 MG/ML 100 ML SDV IV ONE (14:15)
[2020-10-12 14:29] LABS: ABS Lymphocytes 6.5 10^3/ul (1.0-4.8); ABS Monocytes 0.6 10^3/ul (0-0.8); ABS Neutrophils 15.8 10^3/ul (1.5-7.7); Eosinophil % 0.2 %; Lymphocyte % 28.3 %
[2020-10-12] MEDS ORDERED: Sodium Bicarbonate 8.4% SYR 50 ml SYRINGE ONE (14:59)
[2020-10-12 15:00] LABS: CO2 Carbon Dioxide < 7 mmol/L (22-32)
[2020-10-12] MEDS ORDERED: Lactated Ringers 1000 ml BAG 1,000 ML IV SCH (15:00)
[2020-10-12] MEDS ORDERED: Sodium Bicarbonate 8.4% SYR 50 ml SYRINGE IV ONE (15:02)
[2020-10-12] MEDS: Sodium Bicarb 8.4% Vial 50 ML 150 MEQ in D5W 1000 ml BAG 850 ML IV SCH (16:55)
[2020-10-12 17:14] LABS: Magnesium 2.4 mg/dL (1.9-2.7)
[2020-10-12 17:20] LABS: Phosphorus 6.8 mg/dL (2.5-5.0)
[2020-10-12] MEDS: Enoxaparin 40 MG/0.4 ML SYR SUBCUT SCH (17:44)
[2020-10-12 18:44] LABS: Urine Appearance Cloudy; Urine Bilirubin Negative (Negative); Urine Blood 1+ (Negative); Urine Color Yellow; Urine Glucose Negative (Negative); Urine Ketones 2+ (Negative); Urine Nitrite Negative (Negative); Urine Protein 2+(100 mg/dL) (Negative); Urine Specific Gravity 1.013 (1.010-1.030); Urine Urobilinogen Negative (Negative)
[2020-10-12 18:47] LABS: Urine Bacteria 1+ (Absent); Urine Red Blood Cell Trace(0-2/hpf) (Absent); Urine Squamous Epithelial Cell Present (Absent); Urine White Blood Cell 1+(6-10/hpf) (Absent)
[2020-10-12 19:20] LABS: BUN/Creatinine Ratio 30.2 (8-20); Blood Urea Nitrogen 35 mg/dL (6-24); Calcium 8.1 mg/dL (8.6-10.3); Chloride 104 mmol/L (101-111); EGFR African American 55.3 (>60); EGFR Non-African American 45.7 (>60); Glucose 137 mg/dL (70-100); Potassium 3.6 mmol/L (3.5-5.0); Sodium 141 mmol/L (135-145)
[2020-10-12 19:24] LABS: CO2 Carbon Dioxide < 7 mmol/L (22-32)
[2020-10-12 22:52] LABS: Urine Benzodiazepine Screen None Detected (None Detect); Urine Cannabinoids Screen None Detected (None Detect); Urine Opiates Screen None Detected (None Detect)
[2020-10-12 23:27] LABS: BUN/Creatinine Ratio 28.6 (8-20); Blood Urea Nitrogen 34 mg/dL (6-24); Calcium 7.9 mg/dL (8.6-10.3); Chloride 103 mmol/L (101-111); EGFR African American 53.7 (>60); EGFR Non-African American 44.3 (>60); Glucose 168 mg/dL (70-100); Sodium 140 mmol/L (135-145)
[2020-10-12 23:31] LABS: CO2 Carbon Dioxide < 7 mmol/L (22-32)
[2020-10-12 23:48] LABS: Acetaminophen < 15 mcg/mL
[2020-10-13] MEDS: KCL 20 MEQ/100 ML IVPREMIX 20 MEQ/100 ML BAG IV SCH ×5 (01:39→22:43)
[2020-10-13] MEDS: Sodium Bicarb 8.4% Vial 50 ML 150 MEQ in D5W 1000 ml BAG 850 ML IV SCH (02:55)
[2020-10-13] MEDS ORDERED: KCL 20 MEQ/100 ML IVPREMIX 20 MEQ/100 ML BAG IV ONE (03:30)
[2020-10-13 05:58] LABS: Hematocrit 34 % (35-47); Hemoglobin 10.4 g/dL (12.0-16.0); Mean Corpuscular HGB Conc 31 g/dL (31-36); Mean Corpuscular Hemoglobin 25 pg (27-31); Mean Corpuscular Volume 81 fL (80-97); Mean Platelet Volume 7.5 fL (7.4-10.4); Platelet Count 436 10^3/uL (150-450); Red Blood Count 4.22 10^6 /uL (3.70-4.87); Red Cell Distribution Width 21 % (10-15); White Blood Count 25.1 10^3/uL (3.5-10.8)
[2020-10-13] MEDS ORDERED: Metoclopramide 5 MG/ML VIAL (10 mg) IV SLOW PU PRN ×2 (06:05→21:00)
[2020-10-13 06:14] LABS: ALT 23 U/L (7-52); Albumin 3.7 g/dL (3.2-5.2); Albumin/Globulin Ratio 1.2 (1-3); Alkaline Phosphatase 98 U/L (34-104); BUN/Creatinine Ratio 28.8 (8-20); Blood Urea Nitrogen 32 mg/dL (6-24); Calcium 7.5 mg/dL (8.6-10.3); Chloride 104 mmol/L (101-111); EGFR African American 58.1 (>60); Glucose 134 mg/dL (70-100); Sodium 139 mmol/L (135-145); Total Protein 6.7 g/dL (6.4-8.9)
[2020-10-13 06:16] LABS: ABS Basophils 0.2 10^3/ul (0-0.2); ABS Monocytes 1.6 10^3/ul (0-0.8); ABS Neutrophils 17.3 10^3/ul (1.5-7.7); Lymphocyte % 23.8 %; Nucleated Red Blood Cells % 0.1
[2020-10-13 06:23] LABS: CO2 Carbon Dioxide < 7 mmol/L (22-32)
[2020-10-13 06:29] LABS: TSH Ultra Thyroid Stim Horm 0.06 mcIU/mL (0.34-5.60)
[2020-10-13 06:56] LABS: AST 28 U/L (13-39); Potassium 3.4 mmol/L (3.5-5.0)
[2020-10-13 08:03] LABS: Magnesium 2.3 mg/dL (1.9-2.7); Phosphorus 3.9 mg/dL (2.5-5.0)
[2020-10-13] MEDS ORDERED: Sodium Bicarb 8.4% Vial 50 ML 150 MEQ in D5W 1000 ml BAG 850 ML IV SCH (09:00)
[2020-10-13 09:06] LABS: Free T4 1.06 ng/dL (0.61-1.12)
[2020-10-13 09:10] LABS: Total T3 31 ng/dL (87-178)
[2020-10-13] MEDS ORDERED: Lidocaine 1% VIAL 10 MG/ML VIAL ONE (09:19)
[2020-10-13] MEDS ORDERED: Heparin 1,000 UNIT/ML 10 ml (10,000 UNITS) CATHLAB/DIALYSIS DIALYSIS ONE (12:00)
[2020-10-13 12:47] LABS: Hepatitis B Surface Antigen Nonreactive (Nonreactive)
[2020-10-13 13:05] LABS: Hepatitis B Surface Ab Not Immune (Immune)
[2020-10-13 17:18] LABS: CO2 Carbon Dioxide 26 mmol/L (22-32); Calcium 8.2 mg/dL (8.6-10.3); Chloride 95 mmol/L (101-111); Sodium 139 mmol/L (135-145)
[2020-10-13 17:23] LABS: Anion Gap 18 mmol/L (2-11); Potassium 2.7 mmol/L (3.5-5.0)
[2020-10-13 17:24] LABS: BUN/Creatinine Ratio 12.8 (8-20); Blood Urea Nitrogen 6 mg/dL (6-24); EGFR African American 156.7 (>60); EGFR Non-African American 129.5 (>60); Glucose 72 mg/dL (70-100)
[2020-10-13] MEDS ORDERED: Metoclopramide 5 MG/ML VIAL (10 mg) IV SLOW PU ONE (17:25)
[2020-10-13] MEDS ORDERED: Metoclopramide 5 MG/ML VIAL (10 mg) ONE (17:29)
[2020-10-13] MEDS: Enoxaparin 40 MG/0.4 ML SYR SUBCUT SCH (17:31)
[2020-10-14] MEDS ORDERED: Benzocaine/Menthol LOZ MT PRN (04:09)
[2020-10-14 05:53] LABS: Hematocrit 30 % (35-47); Hemoglobin 9.6 g/dL (12.0-16.0); Mean Corpuscular HGB Conc 32 g/dL (31-36); Mean Corpuscular Hemoglobin 24 pg (27-31); Mean Corpuscular Volume 77 fL (80-97); Mean Platelet Volume 7.7 fL (7.4-10.4); Platelet Count 268 10^3/uL (150-450); Red Blood Count 3.95 10^6 /uL (3.70-4.87); Red Cell Distribution Width 20 % (10-15); White Blood Count 13.5 10^3/uL (3.5-10.8)
[2020-10-14 06:03] LABS: INR 1.01 (0.82-1.09)
[2020-10-14 06:14] LABS: BUN/Creatinine Ratio 14.7 (8-20); Calcium 8.4 mg/dL (8.6-10.3); EGFR African American 64.1 (>60); Magnesium 2.2 mg/dL (1.9-2.7); Phosphorus 1.1 mg/dL (2.5-5.0)
[2020-10-14 06:22] LABS: Potassium 2.6 mmol/L (3.5-5.0)
[2020-10-14] MEDS ORDERED: Magnesium Sulfate 2 gm BAG 2 GM/50 ML BAG IVPB ONE (06:29)
[2020-10-14] MEDS ORDERED: Potassium Chlor 20 meq TAB.ER PO ONE (07:12)
[2020-10-14] MEDS: KCL 20 MEQ/100 ML IVPREMIX 20 MEQ/100 ML BAG IV SCH ×3 (08:49→22:45)
[2020-10-14] MEDS ORDERED: Potassium Phosphate IV 15 MMOLE in NS 0.9% 250 ml 250 ML IVPB ONE (09:00)
[2020-10-14 12:59] LABS: BUN/Creatinine Ratio 15.1 (8-20); Calcium 8.5 mg/dL (8.6-10.3); EGFR African American 71.3 (>60); EGFR Non-African American 58.9 (>60); Potassium 3.4 mmol/L (3.5-5.0)
[2020-10-14] MEDS: Enoxaparin 40 MG/0.4 ML SYR SUBCUT SCH (17:59)
[2020-10-15] MEDS: KCL 20 MEQ/100 ML IVPREMIX 20 MEQ/100 ML BAG IV SCH (00:48)
[2020-10-15 05:23] LABS: Hematocrit 32 % (35-47); Hemoglobin 10.3 g/dL (12.0-16.0); Mean Corpuscular HGB Conc 32 g/dL (31-36); Mean Corpuscular Hemoglobin 25 pg (27-31); Mean Corpuscular Volume 77 fL (80-97); Mean Platelet Volume 7.7 fL (7.4-10.4); Platelet Count 254 10^3/uL (150-450); Red Blood Count 4.17 10^6 /uL (3.70-4.87); Red Cell Distribution Width 21 % (10-15); White Blood Count 11.4 10^3/uL (3.5-10.8)
[2020-10-15 05:42] LABS: BUN/Creatinine Ratio 13.5 (8-20); Calcium 8.6 mg/dL (8.6-10.3); EGFR African American 92.8 (>60); EGFR Non-African American 76.7 (>60); Phosphorus 1.4 mg/dL (2.5-5.0); Potassium 3.2 mmol/L (3.5-5.0)
[2020-10-15] MEDS ORDERED: Potassium Chlor 20 meq TAB.ER PO ONE (07:19)
[2020-10-15] MEDS ORDERED: Potassium Phosphate IV 15 MMOLE in NS 0.9% 250 ml 250 ML IVPB ONE (08:00)
[2020-10-15 08:49] LABS: Magnesium 2.1 mg/dL (1.9-2.7)
[2020-10-15] MEDS: Enoxaparin 40 MG/0.4 ML SYR SUBCUT SCH (17:31)
[2020-10-15] MEDS: Albuterol HFA INHALER 8 gm MDI INH PRN (23:05)
[2020-10-16] MEDS: GuaiFENesin DM 100 mg/10 mg in 5 ML UDC PO PRN ×3 (04:50→18:14)
[2020-10-16 10:12] LABS: Hematocrit 32 % (35-47); Hemoglobin 10.5 g/dL (12.0-16.0); Mean Corpuscular HGB Conc 33 g/dL (31-36); Mean Corpuscular Hemoglobin 25 pg (27-31); Mean Corpuscular Volume 75 fL (80-97); Mean Platelet Volume 7.6 fL (7.4-10.4); Platelet Count 254 10^3/uL (150-450); Red Blood Count 4.26 10^6 /uL (3.70-4.87); Red Cell Distribution Width 21 % (10-15); White Blood Count 8.9 10^3/uL (3.5-10.8)
[2020-10-16] MEDS: Enoxaparin 40 MG/0.4 ML SYR SUBCUT SCH (17:05)
[2020-10-16] MEDS: Albuterol HFA INHALER 8 gm MDI INH PRN (20:07)
[2020-10-16] MEDS ORDERED: GuaiFENesin DM 100 mg/10 mg in 5 ML UDC PO PRN (22:16)
[2020-10-17] MEDS ORDERED: Calcium Carb (TUMS) 500 mg CHEW TAB PO PRN (02:27)
[2020-10-17] MEDS: Albuterol HFA INHALER 8 gm MDI INH PRN (03:51)
[2020-10-17 07:54] LABS: Hematocrit 34 % (35-47); Hemoglobin 10.9 g/dL (12.0-16.0); Mean Corpuscular HGB Conc 32 g/dL (31-36); Mean Corpuscular Hemoglobin 25 pg (27-31); Mean Corpuscular Volume 77 fL (80-97); Red Blood Count 4.43 10^6 /uL (3.70-4.87); Red Cell Distribution Width 20 % (10-15)
[2020-10-17 08:24] LABS: Albumin 3.4 g/dL (3.2-5.2); Calcium 8.6 mg/dL (8.6-10.3); Magnesium 1.8 mg/dL (1.9-2.7); Total Bilirubin 0.3 mg/dL (0.2-1.0)
[2020-10-17 08:30] LABS: Albumin/Globulin Ratio 1.3 (1-3); BUN/Creatinine Ratio 26.2 (8-20); EGFR Non-African American 95.9 (>60); Globulin 2.7 g/dL (2-4); Total Protein 6.1 g/dL (6.4-8.9)
[2020-10-17 08:45] LABS: ABS Basophils 0.2 10^3/ul (0-0.2); ABS Eosinophils 0.7 10^3/ul (0-0.6); ABS Lymphocytes 3.8 10^3/ul (1.0-4.8); ABS Monocytes 1.2 10^3/ul (0-0.8); ABS Neutrophils 7.1 10^3/ul (1.5-7.7); Lymphocyte % 29.6 %; Mean Platelet Volume 8.7 fL (7.4-10.4); Nucleated Red Blood Cells % 0.1; Platelet Count 237 10^3/uL (150-450)
[2020-10-17] MEDS ORDERED: Magnesium Sulfate 2 gm BAG 2 GM/50 ML BAG IVPB ONE (08:57)
[2020-10-17 10:17] LABS: Potassium 3.9 mmol/L (3.5-5.0)
[2020-10-17 14:45] VITALS: BP 146/78
== END 2020-10-17 16:24 | disposition home or self-care (01) | DRG 641 ==
LOC: ED 13:28 → ICU 14:56 → MEDTELE 10-15 15:49
PROVIDERS: ADMIT Internal Medicine Critical Care Medicine; ATTEND Internal Medicine

== ENCOUNTER 2022-09-04 07:23 | Observation (INO) ==
[~2022-09-04 07:23] MED LIST: Buffered Lidocaine 1% SYRIN 1 ml INTRADERM ONE; Lactated Ringers 1000 ml BAG 1,000 ML IV SCH; Naloxone 0.4 mg VIAL 0.4 mg/ml 1 ml VIAL IV PRN; Ondansetron 4 mg VIAL 2 MG/ML 2 ml VIAL IV PRN; fentaNYL 100 mcg/2 ml 50 MCG/ML VIAL IV PRN; oxyCODONE/Acetamin 5/325 mg TAB PO PRN
[2022-09-04] MEDS ORDERED: ROPIVACAINE 5 MG/ML 30 ML BTL (0.5%) ONE ×2 (07:25→08:29)
[2022-09-04] MEDS ORDERED: ceFAZolin 2 GM PREMIX 2 GM/50 ML BAG ONE (07:54)
[2022-09-04] MEDS ORDERED: fentaNYL 100 mcg/2 ml 50 MCG/ML VIAL ONE (09:06)
[2022-09-04] MEDS ORDERED: Midazolam 2 mg/2 ml VIAL 1 mg/ml 2 ml VIAL (2 mg) ONE (09:06)
[2022-09-04] MEDS ORDERED: Lidocaine 2% PF 5 ML VIAL ONE (09:07)
[2022-09-04] MEDS ORDERED: Phenylephrine IV 10 MG/ML 1 ml VIAL ONE (09:09)
[2022-09-04] MEDS ORDERED: Dexmedetomidine 200 mcg/2 ml 2 ml VIAL (200 mcg) ONE (09:14)
[2022-09-04] MEDS ORDERED: Phenylephrine 40 mcg/mL 10mL (400mcg) SYRINGE ONE (09:56)
[2022-09-04] MEDS ORDERED: Glycopyrrolate IV 0.2 MG/ML 1 ML VIAL ONE ×2 (10:28→10:34)
[2022-09-04] MEDS ORDERED: Ondansetron ODT 4 mg TAB 4 MG TAB PO PRN (10:37)
[2022-09-04] MEDS ORDERED: Morphine 2 MG/ML SYRINGE IV PRN (10:37)
[2022-09-04] MEDS ORDERED: Lactulose 30 ml UDC PO PRN (10:37)
[2022-09-04] MEDS ORDERED: Ondansetron 4 mg VIAL 2 MG/ML 2 ml VIAL IV PRN (10:37)
[2022-09-04] MEDS ORDERED: Magnesium Hydroxide LIQ 30 ML UDC PO PRN (10:37)
[2022-09-04] MEDS ORDERED: Lactated Ringers 1000 ml BAG 1,000 ML IV SCH (11:00)
[2022-09-04] MEDS ORDERED: Propofol 10 MG/ML 20 ML BTL ONE (11:03)
[2022-09-04] MEDS ORDERED: Acetaminophen IV 1 GM/100ML 1,000 MG/100 ML BAG IV ONE (12:06)
[2022-09-04] MEDS ORDERED: Ondansetron 4 mg VIAL 2 MG/ML 2 ml VIAL ONE (12:06)
[2022-09-04] MEDS ORDERED: Albuterol HFA INHALER 8 gm MDI INH PRN (13:11)
[2022-09-04] MEDS ORDERED: oxyCODONE/Acetamin 5/325 mg TAB ONE (13:29)
[2022-09-04] MEDS: ceFAZolin 1 GM ADVAN 1 GM in NS 0.9% 50 ML 50 ML IVPB SCH (17:37)
[2022-09-04] MEDS: Mometasone/Formoter 200/5 MDI INH SCH (19:42)
[2022-09-04] MEDS: Magnesium Hydroxide LIQ 30 ML UDC PO SCH (21:28)
[2022-09-05] MEDS: ceFAZolin 1 GM ADVAN 1 GM in NS 0.9% 50 ML 50 ML IVPB SCH (01:38)
[2022-09-05 07:16] LABS: Hematocrit 36 % (35-47); Hemoglobin 12.1 g/dL (12.0-16.0); Mean Platelet Volume 9.3 fL (7.4-10.4); Platelet Count 225 10^3/uL (150-450)
[2022-09-05] MEDS: Mometasone/Formoter 200/5 MDI INH SCH (07:25)
[2022-09-05 07:27] LABS: Calcium 8.3 mg/dL (8.6-10.3); Potassium 4.3 mmol/L (3.5-5.0); eGFR CKD-EPI 89.6 (>60)
[2022-09-05] MEDS: Magnesium Hydroxide LIQ 30 ML UDC PO SCH (08:12)
[2022-09-05] MEDS ORDERED: Vitamin THERAPEUTIC TAB PO SCH (09:00)
[2022-09-05] MEDS ORDERED: ceFAZolin 1 GM in Dextrose 1 GM/50 ML BAG IVPB ONE (10:00)
[2022-09-05 11:22] VITALS: BP 99/61
== END 2022-09-05 15:30 | disposition home or self-care (01) ==
LOC: SSU 07:23 → OR 07:23
PROVIDERS: ADMIT Orthopaedic Surgery Adult Reconstructive Orthopaedic Surgery; ATTEND Orthopaedic Surgery Adult Reconstructive Orthopaedic Surgery